=== PATIENT | male | born 1960 | race Caucasian/White ===

== ENCOUNTER 2019-04-29 08:09 | Inpatient (IN) | payer BC ==
[2019-04-29 08:54] LABS: Glucose,Whole Blood 115 mg/dL (75-99)
--- NOTE | 2019-04-29 08:58 | ED ---
General Adult HPI - General Chief complaint: Neuro Symptoms/Deficit Stated complaint: POSS CVA,left side numbness, leaning, dizziness Time Seen by Provider: 04/29/19 08:10 Source: patient, RN notes reviewed Mode of arrival: ambulatory Limitations: no limitations - History of Present Illness Initial comments: This is a 59-year-old male presents emergency department stating that he got up at 5:00 this morning and felt fine however when he got back up to go to the bathroom at 7:00 he was dizzy and felt as though his falling to the left. Patient states when he walked to let the dog out he had to hold onto something so he didn't fall over. Patient states he also feels as though his left arm is not coordinated. Patient states he seems to have good strength and good sensation but he doesn't feel as though he can control as good as he used to. Patient denies any right arm or any lower extremity problems. Patient denies any numbness anywhere or specific weakness. Patient denies any chest pain palpitations difficulty breathing or shortness of breath. Patient denies any recent fever or chills. Patient denies any recent trauma - Related Data Home Medications Medication Instructions Recorded Confirmed Cholecalciferol [Vitamin D3 (25 1,000 unit PO DAILY 04/29/19 04/29/19 Mcg = 1000 Iu)] Fluticasone Propionate [Flovent 1 puff INHALATION RT-BID 04/29/19 04/29/19 Hfa 220 mcg] Folic Acid 0.8 mg PO DAILY 04/29/19 04/29/19 Multivitamins, Thera [Multivitamin 1 tab PO DAILY 04/29/19 04/29/19 (formulary)] Alfred-3 Fatty Acids/Fish Oil [Fish 1 cap PO DAILY 04/29/19 04/29/19 Oil 1,000 mg Softgel] Pravastatin Sodium 80 mg PO HS 04/29/19 04/29/19 Allergies Allergy/AdvReac Type Severity Reaction Status Date / Time No Known Allergies Allergy Verified 04/29/19 08:31 Review of Systems ROS Statement: Those systems with pertinent positive or pertinent negative responses have been documented in the HPI. ROS Other: All systems not noted in ROS Statement are negative. Past Medical History Past Medical History: Hyperlipidemia Additional Past Medical History / Comment(s): skin ca 3yrs ago History of Any Multi-Drug Resistant Organisms: None Reported Past Surgical History: Appendectomy Additional Past Surgical History / Comment(s): skin ca removal 3 yrs ago Past Psychological History: No Psychological Hx Reported Smoking Status: Former smoker Past Alcohol Use History: Occasional Past Drug Use History: None Reported General Exam - General Exam Comments Initial Comments: GENERAL: Patient is well-developed and well-nourished. Patient is nontoxic and well- hydrated and is in mild distress. ENT: Neck is soft and supple. No significant lymphadenopathy is noted. Oropharynx is clear. Moist mucous membranes. Neck has full range of motion without eliciting any pain. EYES: The sclera were anicteric and conjunctiva were pink and moist. Extraocular movements were intact and pupils were equal round and reactive to light. Eyelids were unremarkable. PULMONARY: Unlabored respirations. Good breath sounds bilaterally. No audible rales rhonchi or wheezing was noted. CARDIOVASCULAR: There is a regular rate and rhythm without any murmurs gallops or rubs. ABDOMEN: Soft and nontender with normal bowel sounds. No palpable organomegaly was noted. There is no palpable pulsatile mass. SKIN: Skin is clear with no lesions or rashes and otherwise unremarkable. NEUROLOGIC: Patient is alert and oriented x3. Cranial nerves II through XII are grossly intact. Motor and sensory are also intact. Normal speech, volume and content. Symmetrical smile. Patient has no heel to cadena abnormality however testing is finger to nose he was definitely off with the left hand. Patient also had some slight nystagmus when looking to the right MUSCULOSKELETAL: Normal extremities with adequate strength and full range of motion. No lower extremity swelling or edema. No calf tenderness. LYMPHATICS: No significant lymphadenopathy is noted PSYCHIATRIC: Normal psychiatric evaluation. Limitations: no limitations Course Vital Signs 04/29/19 04/29/19 04/29/19 08:20 08:35 08:50 Temperature 97.9 F Pulse Rate 73 82 85 Respiratory 18 18 18 Rate Blood Pressure 157/97 150/103 144/95 O2 Sat by Pulse 94 L 95 95 Oximetry 04/29/19 04/29/19 09:05 09:20 Temperature Pulse Rate 83 82 Respiratory 18 18 Rate Blood Pressure 144/95 145/103 O2 Sat by Pulse 96 96 Oximetry Medical Decision Making - Medical Decision Making EKG shows normal sinus rhythm at 76 bpm SC interval 186 QRS is 98 QT interval 37 0 QTC is 416. Patient's EKG shows no ST segment elevation or depression or T wave abnormalities are noted. I spoke with Dr. Jean as soon as the patient was evaluated by myself. Patient had a CT of the head showed no acute abnormality and a CT that showed no acute abnormality. Dr. Jean wanted the patient to have aspirin and Lipitor. I spoke with Dr. Malloy he agreed to admit the patient admitted patient I consult the neurology - Lab Data Result diagrams: 04/29/19 08:40 04/29/19 08:40 Lab Results 04/29/19 04/29/19 04/29/19 Range/Units 08:40 08:40 08:40 WBC 5.7 (3.8-10.6) k/uL RBC 5.33 (4.30-5.90) m/uL Hgb 16.1 (13.0-17.5) gm/dL Hct 47.0 (39.0-53.0) % MCV 88.0 (80.0-100.0) fL MCH 30.2 (25.0-35.0) pg MCHC 34.3 (31.0-37.0) g/dL RDW 14.8 (11.5-15.5) % Plt Count 186 (150-450) k/uL Neutrophils % 57 % Lymphocytes % 26 % Monocytes % 6 % Eosinophils % 6 % Basophils % 1 % Neutrophils # 3.2 (1.3-7.7) k/uL Lymphocytes # 1.5 (1.0-4.8) k/uL Monocytes # 0.4 (0-1.0) k/uL Eosinophils # 0.3 (0-0.7) k/uL Basophils # 0.1 (0-0.2) k/uL PT 10.0 (9.0-12.0) sec INR 0.9 (<1.2) APTT 23.2 (22.0-30.0) sec Sodium 141 (137-145) mmol/L Potassium 4.0 (3.5-5.1) mmol/L Chloride 104 (98-107) mmol/L Carbon Dioxide 28 (22-30) mmol/L Anion Gap 9 mmol/L BUN 12 (9-20) mg/dL Creatinine 0.98 (0.66-1.25) mg/dL Est GFR (CKD-EPI)AfAm >90 (>60 ml/min/1.73 sqM) Est GFR (CKD-EPI)NonAf 84 (>60 ml/min/1.73 sqM) Glucose 107 H (74-99) mg/dL POC Glucose (mg/dL) (75-99) mg/dL POC Glu Straightening Press Operator Helper ID Calcium 9.3 (8.4-10.2) mg/dL Total Bilirubin 0.7 (0.2-1.3) mg/dL AST 30 (17-59) U/L ALT 38 (21-72) U/L Alkaline Phosphatase 52 (38-126) U/L Troponin I (0.000-0.034) ng/mL Total Protein 6.8 (6.3-8.2) g/dL Albumin 4.3 (3.5-5.0) g/dL 04/29/19 04/29/19 Range/Units 08:40 08:44 WBC (3.8-10.6) k/uL RBC (4.30-5.90) m/uL Hgb (13.0-17.5) gm/dL Hct (39.0-53.0) % MCV (80.0-100.0) fL MCH (25.0-35.0) pg MCHC (31.0-37.0) g/dL RDW (11.5-15.5) % Plt Count (150-450) k/uL Neutrophils % % Lymphocytes % % Monocytes % % Eosinophils % % Basophils % % Neutrophils # (1.3-7.7) k/uL Lymphocytes # (1.0-4.8) k/uL Monocytes # (0-1.0) k/uL Eosinophils # (0-0.7) k/uL Basophils # (0-0.2) k/uL PT (9.0-12.0) sec INR (<1.2) APTT (22.0-30.0) sec Sodium (137-145) mmol/L Potassium (3.5-5.1) mmol/L Chloride (98-107) mmol/L Carbon Dioxide (22-30) mmol/L Anion Gap mmol/L BUN (9-20) mg/dL Creatinine (0.66-1.25) mg/dL Est GFR (CKD-EPI)AfAm (>60 ml/min/1.73 sqM) Est GFR (CKD-EPI)NonAf (>60 ml/min/1.73 sqM) Glucose (74-99) mg/dL POC Glucose (mg/dL) 115 H (75-99) mg/dL POC Glu Straightening Press Operator Helper ID Kerwin Navarrete Calcium (8.4-10.2) mg/dL Total Bilirubin (0.2-1.3) mg/dL AST (17-59) U/L ALT (21-72) U/L Alkaline Phosphatase (38-126) U/L Troponin I <0.012 (0.000-0.034) ng/mL Total Protein (6.3-8.2) g/dL Albumin (3.5-5.0) g/dL Disposition Clinical Impression: Cerebrovascular accident Disposition: ADMITTED IP TO THIS HOSP Referrals: Harsh Moe MD [Primary Care Provider] - 1-2 days Time of Disposition: 10:40
--- NOTE | 2019-04-29 09:04 | CT ---
EXAMINATION TYPE: CT brain wo con for TPA DATE OF EXAM: 04/29/2019 COMPARISON: None HISTORY: Left side numbness, lean, dizziness Unenhanced CT of the brain was performed. The ventricles, basal cisterns and sulci overlying the cerebral convexities demonstrate mild enlargem ent. There is no evidence for intracranial hemorrhage or sulcal effacement. There is decreased attenuation about the periventricular white matter and deep white matter of both c erebral hemispheres, compatible with chronic small vessel ischemia. Differential diagnosis does inclu de demyelination. No mass effects are seen.No midline shift. Osseous calvarium is intact. If symptoms persist consider MRI. IMPRESSION: 1. Age related atrophic and chronic small vessel ischemic change without acute intracranial process s een at this time.
--- NOTE | 2019-04-29 09:07 | XR ---
EXAMINATION TYPE: XR chest 2V DATE OF EXAM: 04/29/2019 COMPARISON: NONE HISTORY: Shortness of breath TECHNIQUE: Frontal and lateral views of the chest are obtained. FINDINGS: Scattered senescent parenchymal changes noted. Hyperinflation compatible with COPD. No evidence for infiltrate. No evidence for atelectasis. Heart size is stable. Mediastinal structures are stable and grossly unremarkable. No evidence for hilar prominence. Degenerative changes dorsal spine. IMPRESSION: 1. No evidence for acute pulmonary disease.
[2019-04-29 09:20] LABS: Basophils # (A) 0.1 k/uL (0-0.2); Basophils % (A) 1 %; Eosinophils # (A) 0.3 k/uL (0-0.7); Eosinophils % (A) 6 %; HGB 16.1 gm/dL (13.0-17.5); Lymphocytes # (A) 1.5 k/uL (1.0-4.8); Lymphocytes % (A) 26 %; MCH 30.2 pg (25.0-35.0); MCHC 34.3 g/dL (31.0-37.0); Mean Platelet Volume 8.7; Monocytes # (A) 0.4 k/uL (0-1.0); Monocytes % (A) 6 %; Neutrophils # (A) 3.2 k/uL (1.3-7.7); Neutrophils % (A) 57 %; Platelet Count 186 k/uL (150-450); RBC 5.33 m/uL (4.30-5.90); RDW 14.8 % (11.5-15.5); WBC 5.7 k/uL (3.8-10.6)
[2019-04-29] MEDS ORDERED: ATORVASTATIN 80 MG TAB PO STA (09:22)
--- NOTE | 2019-04-29 09:32 | CT ---
EXAMINATION TYPE: CT angio head neck DATE OF EXAM: 04/29/2019 COMPARISON: None HISTORY: Left side numbness, lean, dizziness CT DLP: 603.1 mGycm CONTRAST: Performed with IV Contrast, patient injected with 50 mL of Isovue 370. Combination Contrast CTA cervical carotids and [place] CTA cervical carotids with 3-D recons truction Contrast CTA of the cervical carotids was performed 3-D reconstruction imaging obtained at a separate workstation. Right carotid system: Mild plaque is seen of the right common carotid artery. There is mild plaque a lso noted at the carotid bulb and proximal ICA. No significant diameter reduction. ECA is patent. Right vertebral artery appears unremarkable. Left carotid system: Mild plaque is seen of the left common carotid artery. There is mild plaque als o noted at the carotid bulb and proximal ICA. No significant diameter reduction. ECA is patent. Lef t vertebral artery appears unremarkable. IMPRESSION: 1. No significant diameter reduction to account for the patient's symptoms. CTA [place] with 3-D reconstruction Contrast CTA of the [place] was performed 3-D reconstruction imaging obtained at a separate workstation. Vertebrobasilar system as well as intracranial portions of the internal carotid arteries and their ma cyrus tributaries are patent. I do not see evidence for sizable aneurysm or vascular malformation. Pl ease note MRI provides greater sensitivity and specificity. Visualized brain appears grossly unremar kable. IMPRESSION: 1. No significant abnormality.
[2019-04-29 09:33] LABS: INR 0.9 (<1.2); Partial Thromboplastin Time 23.2 sec (22.0-30.0)
[2019-04-29 09:40] LABS: ALT 38 U/L (21-72); AST 30 U/L (17-59); African American GFR (CKD) >90 (>60 ml/min/1.73 sqM); Albumin 4.3 g/dL (3.5-5.0); Alkaline Phosphatase 52 U/L (38-126); Anion Gap 9 mmol/L; Blood Urea Nitrogen 12 mg/dL (9-20); Calcium 9.3 mg/dL (8.4-10.2); Carbon Dioxide 28 mmol/L (22-30); Chloride 104 mmol/L (98-107); Glucose 107 mg/dL (74-99); Sodium 141 mmol/L (137-145); Total Bilirubin 0.7 mg/dL (0.2-1.3); Total Protein 6.8 g/dL (6.3-8.2)
[2019-04-29] MEDS ORDERED: NON-FORMULARY DRUG (Omega-3 Fatty Acids/Fish Oil [Fish Oil 1,000 Mg Softgel] 1 CAP) PO SCH (11:00)
[2019-04-29] MEDS: ASPIRIN 325 MG TAB PO SCH (11:32)
[2019-04-29] MEDS: CHOLECALCIFEROL 1,000 UNIT TAB PO SCH (15:24)
[2019-04-29] MEDS: FOLIC ACID 1 MG TAB PO SCH (15:24)
[2019-04-29] MEDS: MULTIVITAMINS, THERA 1 EACH TAB PO SCH (15:24)
[2019-04-29 17:30] LABS: Hemoglobin A1C 5.5 % (4.0-6.0)
--- NOTE | 2019-04-29 18:03 | P.CNNES ---
History of Present Illness Consult date: 04/29/19 Requesting physician: Easton Cooper Reason for Consult: CVA Chief complaint: "I feel off balance when I walk" History of Present Illness: 59 RH male whose only conventional vascular risk factor is hyperlipidemia who woke up this morning at 5am 04/29/19 and noted to be at his neuro baseline. When he woke up again at 7am to walk his dog, he noted wobbliness and difficulty with coordination of his LUE. He noted that he would veer and fall to the left when he tried to walk. He presented to the ER who contacted interventional neurology who did not recommend any acute vascular intervention. He was asked to start aspirin and statin therapy. Incidentally, patient states that he had been on asp irin long-term, but was recently told to discontinue it, so he did. Otherwise, he lives a healthy lifestyle. 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 No recent head/neck trauma. Review of Systems 14-point ROS performed and as per HPI. Neurologically, patient denies decreased level or loss of consciousness, headache, seizure, changes in vision, diplopia, amaurosis, changes in hearing, facial droop, ptosis, vertigo, hearing loss, tinnitus, dysarthria, dysphagia, aphasia, other focal numbness/weakness not mentioned above, tremors or bowel/bladder incontinence. Past Medical History Past Medical History: Hyperlipidemia Additional Past Medical History / Comment(s): skin ca 3yrs ago History of Any Multi-Drug Resistant Organisms: None Reported Past Surgical History: Appendectomy Additional Past Surgical History / Comment(s): skin ca removal 3 yrs ago Past Anesthesia/Blood Transfusion Reactions: No Reported Reaction Smoking Status: Former smoker - Past Family History Father Family Medical History: Hypertension, Myocardial Infarction ([place]) Additional Family Medical History / Comment(s): Father of a massive AL at the age of 63yrs. Mother Family Medical History: Cancer Additional Family Medical History / Comment(s): Mother had lung cancer, she never smoked but was around 2nd hand smoke. Son(s) Family Medical History: Hypertension Medications and Allergies Home Medications Medication Instructions Recorded Confirmed Type Cholecalciferol [Vitamin D3 (25 1,000 unit PO DAILY 04/29/19 04/29/19 History Mcg = 1000 Iu)] Fluticasone Propionate [Flovent 1 puff INHALATION RT-BID 04/29/19 04/29/19 History Hfa 220 mcg] Folic Acid 0.8 mg PO DAILY 04/29/19 04/29/19 History Multivitamins, Thera [Multivitamin 1 tab PO DAILY 04/29/19 04/29/19 History (formulary)] Chemult-3 Fatty Acids/Fish Oil [Fish 1 cap PO DAILY 04/29/19 04/29/19 History Oil 1,000 mg Softgel] Pravastatin Sodium 80 mg PO HS 04/29/19 04/29/19 History Allergies Allergy/AdvReac Type Severity Reaction Status Date / Time No Known Allergies Allergy Verified 04/29/19 08:31 Physical Examination - Vital Signs Vital Signs: Vital Signs Temp Pulse Pulse Pulse Resp BP BP 04/29/19 15:30 97.6 F 76 76 16 139/84 04/29/19 14:48 97.6 F 88 16 132/84 04/29/19 13:43 97.4 F L 74 16 126/85 04/29/19 13:00 16 04/29/19 12:17 80 16 132/88 04/29/19 11:20 85 16 141/92 04/29/19 10:20 82 16 136/93 04/29/19 09:20 82 18 145/103 04/29/19 09:05 83 18 144/95 04/29/19 08:50 85 18 144/95 04/29/19 08:35 82 18 150/103 04/29/19 08:20 97.9 F 73 18 157/97 Pulse Ox 04/29/19 15:30 94 L 04/29/19 14:48 98 04/29/19 13:43 98 04/29/19 13:00 04/29/19 12:17 04/29/19 11:20 95 04/29/19 10:20 04/29/19 09:20 96 04/29/19 09:05 96 04/29/19 08:50 95 04/29/19 08:35 95 04/29/19 08:20 94 L Intake and Output 04/29/19 04/29/19 04/29/19 06:59 14:59 22:59 Other: Weight 104.326 kg Gen NAD Pleasant and cooperative HEENT NCAT Sclera without icterus O/P clear Neck Supple No carotid bruit Cor RRR no m/r/g Lungs CTAB Abd Soft NTND +BS Ext Warm to touch No edema Neuro MS A+Ox4 Normal fluency Able to follow all commands CN PERRL VFF no APD EOMI no nystagmus or GEENA No facial asymmetry Masseter's symmetric Hearing intact to normal voice bilaterally Speech not dysarthric Equal elevation of palate Tongue midline Sym shrug and SCM bilaterally Motor Normal bulk/tone No pronator or leg drift No tremors Strength 5/5 sym throughout Sens Intact to LT x4 No neglect or extinction Coord +Dysmetria on FTN on the left Normal FTN on the right Normal HTS bilaterally DTRs 2+/4 sym throughout Toes downgoing bilaterally No clonus at achilles Gait Ataxic NIHSS 1 for left limb ataxia Results - Laboratory Findings CBC and BMP: 04/29/19 08:40 04/29/19 08:40 Abnormal Lab Findings: Abnormal Labs 04/29/19 04/29/19 08:40 08:44 Glucose 107 H POC Glucose (mg/dL) 115 H - Diagnostic Findings Additional findings: CT head without contrast 04/29/2019. Age-related atrophy and chronic small vessel ischemic disease. No acute intracranial abnormalities. CTA Head/Neck 04/29/2019. No LVO or stenosis. Assessment and Plan Assessment: Abrupt onset of left limb and truncal ataxia with concerns for cerebellar ischemic infarct. Hyperlipidemia Plan: -Aspirin 325mg po qd. -Statin therapy. -Permissive HTN <220/120. -Goals BP <130/80, hga1c <7.0 and LDL <70 -MRI Brain wo jerome -TTE -CT and CTA Head/Neck reviewed with patient -PT/OT/SP per protocol -Fall precautions -Stroke education given to patient -DVT prophylaxis: Heparin SC -d/w patient and . All questions answered. Thank you for this consultation. Please call with ?. Time with Patient: Greater than 30 (Time spent in direct patient care, greater than 50% of which was spent in [id number] counseling and coordination of care: 70 minutes.)
--- NOTE | 2019-04-29 18:12 | P.HPIM ---
History of Present Illness H&P Date: 04/29/19 Chief Complaint: Dizziness Patient is a 59-year-old male with a known history of hyperlipidemia and previous history of smoking came to ER with the complaints of dizziness and feeling wobbly. Patient says that he woke up around 5 AM this morning and went to bed again. At around 7 AM patient got out of the bed and let his dog out , felt dizzy and wobbly and unable to stay on his feet. He had to hold onto the wall. Denied any fall or hit his head. No compressive chest pain or shortness of breath. Denied room was spinning like sensation. Denied any focal weakness. Denied any numbness or tingling. Denied any previous neck problems. No recent illnesses. No recent travels. Currently dizziness seems improved. Patient did take 2 tablets of aspirin at home. EKG showed normal sinus rhythm. Chest x-ray negative CT head and CTA head and neck negative study. Review of Systems Constitutional: Patient denies any fever or chills . No generalized weakness or weight loss. Abdomen: Patient denied nausea vomiting and diarrhea and abdominal pain. Cardiovascular: Patient denies any chest pain or short of breath no pal pitations. Respiratory: patient denied any cough is from production. No shortness of breath Neurologic: Patient denied any numbness or tingling headache. Dizziness and unsteady gait. Musculoskeletal: Patient denies any complaints of joint swelling or deformity. Skin: Negative Psychiatric: Negative Endocrine: No heat or cold intolerance. No recent weight gain. Genitourinary: No dysuria or hematuria. All other 14 point ROS negative except the above Past Medical History Past Medical History: Hyperlipidemia Additional Past Medical History / Comment(s): skin ca 3yrs ago History of Any Multi-Drug Resistant Organisms: None Reported Past Surgical History: Appendectomy Additional Past Surgical History / Comment(s): skin ca removal 3 yrs ago Past Psychological History: No Psychological Hx Reported Smoking Status: Former smoker Past Alcohol Use History: Occasional Past Drug Use History: None Reported - Past Family History Father Family Medical History: Hypertension, Myocardial Infarction ([place]) Additional Family Medical History / Comment(s): Father of a massive [place] at the age of 63yrs. Mother Family Medical History: Cancer Additional Family Medical History / Comment(s): Mother had lung cancer, she never smoked but was around 2nd hand smoke. Son(s) Family Medical History: Hypertension Medications and Allergies Home Medications Medication Instructions Recorded Confirmed Type Cholecalciferol [Vitamin D3 (25 1,000 unit PO DAILY 04/29/19 04/29/19 History Mcg = 1000 Iu)] Fluticasone Propionate [Flovent 1 puff INHALATION RT-BID 04/29/19 04/29/19 History Hfa 220 mcg] Folic Acid 0.8 mg PO DAILY 04/29/19 04/29/19 History Multivitamins, Thera [Multivitamin 1 tab PO DAILY 04/29/19 04/29/19 History (formulary)] Exchange-3 Fatty Acids/Fish Oil [Fish 1 cap PO DAILY 04/29/19 04/29/19 History Oil 1,000 mg Softgel] Pravastatin Sodium 80 mg PO HS 04/29/19 04/29/19 History Allergies Allergy/AdvReac Type Severity Reaction Status Date / Time No Known Allergies Allergy Verified 04/29/19 08:31 Physical Exam Vitals: Vital Signs Temp Pulse Resp BP Pulse Ox 04/29/19 09:20 82 18 145/103 96 04/29/19 09:05 83 18 144/95 96 04/29/19 08:50 85 18 144/95 95 04/29/19 08:35 82 18 150/103 95 04/29/19 08:20 97.9 F 73 18 157/97 94 L Intake and Output 04/28/19 04/29/19 04/29/19 22:59 06:59 14:59 Other: Weight 104.326 kg PHYSICAL EXAMINATION: Patient is lying in the bed comfortably, no acute distress, awake alert and oriented.. HEENT: Normocephalic. Neck is supple. Pupils reactive. Nostrils clear. Oral cavity is moist. Ears reveal no drainage. Neck reveals no JVD, carotid bruits, or thyromegaly. CHEST EXAMINATION: Trachea is central. Symmetrical expansion. Lung sebastian clear to auscultation and percussion. CARDIAC: Normal S1, S2 with no gallops. No murmurs ABDOMEN: Soft. Bowel sounds normal. No organomegaly. No abdominal bruits. Extremities: reveal no edema. No clubbing or cyanosis Neurologically awake, alert, oriented x3 with well-coordinated movements. No focal deficits noted Skin: No rash or skin lesions. Psychiatric: Coperative. Nonsuicidal Musculoskeletal: No joint swelling or deformity. Normal range of motion. Results CBC & Chem 7: 04/29/19 08:40 04/29/19 08:40 Labs: Abnormal Lab Results - Last 24 Hours (Table) 04/29/19 04/29/19 Range/Units 08:40 08:44 Glucose 107 H (74-99) mg/dL POC Glucose (mg/dL) 115 H (75-99) mg/dL Chest x-ray: report reviewed, image reviewed CT Scan - head: report reviewed Thrombosis Risk Factor Assmnt - DVT/VTE Prophylaxis DVT/VTE Prophylaxis: Pharmacologic Prophylaxis ordered Assessment and Plan Assessment: Dizziness and unsteady gait possible cerebellar infarct. Hyperlipidemia Plan is history of smoking Obesity with BMI 30 4X line DVT prophylaxis Plan: Patient will be continued on aspirin and statins. Continue with telemetry monitoring. CT head and CT angiogram of the head and neck studies negative. Neurology has seen the patient did MRI of the brain without contrast and DVT with bubble study was ordered. PTOT and speech swallow evaluation. Follow up closely. Discussed with the patient and his at bedside in detail. Further recommendations based on the clinical course. Time with Patient: Greater than 30
[2019-04-29] MEDS: FLUTICASONE 220 MCG INHALER INHALATION SCH (20:46)
[2019-04-29] MEDS: HEPARIN SODIUM,PORCINE 5,000 UNIT/ML 1 ML VIAL SQ SCH (23:07)
[2019-04-30] MEDS ORDERED: HEPARIN SODIUM,PORCINE 5,000 UNIT/ML 1 ML VIAL ONE
[2019-04-30 08:06] LABS: Cholesterol 183 mg/dL (<200); HDL Cholesterol 38 mg/dL (40-60); LDL Cholesterol,Calculated 121 mg/dL (0-99); Triglycerides 121 mg/dL (<150)
[2019-04-30] MEDS: ASPIRIN 325 MG TAB PO SCH (08:13)
[2019-04-30] MEDS: HEPARIN SODIUM,PORCINE 5,000 UNIT/ML 1 ML VIAL SQ SCH ×2 (08:13→15:44)
[2019-04-30] MEDS: MULTIVITAMINS, THERA 1 EACH TAB PO SCH (08:13)
[2019-04-30] MEDS: CHOLECALCIFEROL 1,000 UNIT TAB PO SCH (08:13)
[2019-04-30] MEDS: FOLIC ACID 1 MG TAB PO SCH (08:13)
[2019-04-30] MEDS: FLUTICASONE 220 MCG INHALER INHALATION SCH ×2 (08:16→20:57)
--- NOTE | 2019-04-30 10:34 | ECHOF ---
Referral Reason:CVA MEASUREMENTS -------- HEIGHT: 175.3 cm WEIGHT: 104.8 kg BP: 121/78 RVIDd: 3.2 cm (< 3.3) IVSd: 1.5 cm (0.6 - 1.1) LVIDd: 3.3 cm (3.9 - 5.3) LVPWd: 1.6 cm (0.6 - 1.1) IVSs: 2.1 cm LVIDs: 1.7 cm LVPWs: 2.0 cm LAESV Index (A-L): 16.76 ml/m Ao Diam: 3.5 cm (2.0 - 3.7) AV Cusp: 2.1 cm (1.5 - 2.6) LA Diam: 3.7 cm (2.7 - 3.8) MV EXCURSION: 14.577 mm (> 18.000) MV EF SLOPE: 41 mm/s (70 - 150) EPSS: 0.9 cm MV E Kolby: 0.71 m/s MV DecT: 261 ms MV A Kolby: 0.82 m/s MV E/A Ratio: 0.87 RAP: 5.00 mmHg RVSP: 28.31 mmHg FINDINGS -------- Sinus rhythm. This was a technically good study. The left ventricular size is normal. There is mild concentric left ventricular hypertrophy. Overa ll left ventricular systolic function is normal with, an EF between 55 - 60 %. The right ventricle is normal in size. The left atrial size is normal. Normal LA size by volume 22+/-6 ml/m2. The right atrial size is normal. Contrast study was performed with 2 iv injections of 8 ccs of agitated normal saline, at rest, and wi th cough. Interatrial and interventricular septum intact. Aortic valve is trileaflet and is mildly thickened. The mitral valve leaflets are mildly thickened. There is trace mitral regurgitation. Mild tricuspid regurgitation present. Right ventricular systolic pressure is normal at < 35 mmHg. There is no pulmonic regurgitation present. The aortic root size is normal. Normal inferior vena cava with normal inspiratory collapse consistent with estimated right atrial pre ssure of 5 mmHg. There is no pericardial effusion. CONCLUSIONS -------- 1. Sinus rhythm. 2. This was a technically good study. 3. The left ventricular size is normal. 4. There is mild concentric left ventricular hypertrophy. 5. Overall left ventricular systolic function is normal with, an EF between 55 - 60 %. 6. The right ventricle is normal in size. 7. The left atrial size is normal. 8. Normal LA size by volume 22+/-6 ml/m2. 9. The right atrial size is normal. 10. Contrast study was performed with 2 iv injections of 8 ccs of agitated normal saline, at rest, an d with cough. 11. Interatrial and interventricular septum intact.No right to left shunt is noted. 12. Aortic valve is trileaflet and is mildly thickened. 13. The mitral valve leaflets are mildly thickened. 14. There is trace mitral regurgitation. 15. Mild tricuspid regurgitation present. 16. Right ventricular systolic pressure is normal at < 35 mmHg. 17. There is no pulmonic regurgitation present. 18. The aortic root size is normal. 19. Normal inferior vena cava with normal inspiratory collapse consistent with estimated right atrial pressure of 5 mmHg. 20. There is no pericardial effusion. SECURITY ASSOCIATE: Zoe Sue RDCS
--- NOTE | 2019-04-30 13:35 | P.PN ---
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 TTE done. Awaiting MRI. No new neuro c/o. Seen by PT/OT. Reportedly recommended outpatient therapy and not inpatient rehab stay. Objective - Vital Signs Vital signs: Vital Signs Temp 97.2 F L 04/30/19 12:00 Pulse 73 04/30/19 12:00 Resp 18 04/30/19 12:00 BP 134/90 04/30/19 12:00 Pulse Ox 94 L 04/30/19 12:00 Intake & Output 04/29/19 04/30/19 04/30/19 18:59 06:59 18:59 Intake Total 480 120 Balance 480 120 Weight 104.326 kg 105.2 kg Intake: Oral 480 120 Other: Voiding Method Toilet Toilet # Voids 2 1 1 - Exam Gen NAD Pleasant and cooperative MS A+Ox4 Normal speech CN II-XII grossly intact no nystagmus Motor Normal bulk/tone No drift or tremors Strength 5/5 sym throughout Sens Intact to LT x4 Coord Left upper limb ataxia DTRs 2+/4 sym throughout Gait Deferred NIHSS 1 - Labs CBC & Chem 7: 04/29/19 08:40 04/29/19 08:40 Labs: Abnormal Lab Results - Last 24 Hours (Table) 04/30/19 Range/Units 06:45 LDL Cholesterol, Calc 121 H (0-99) mg/dL HDL Cholesterol 38 L (40-60) mg/dL - Imaging and Cardiology TTE 04/30/19. Normal LV size and EF. No [id number] shunt. No intracardiac thrombi. Assessment and Plan Assessment: Abrupt onset of left limb and truncal ataxia with concerns for cerebellar ische suleman infarct. Hyperlipidemia Plan: -Aspirin 325mg po qd. -Statin therapy. -May gradually lower BP to normotensive range. -Goals BP <130/80, hga1c <7.0 and LDL <70 -MRI Brain wo jerome pending. -TTE reviewed with patient. Patient does not really have significant vascular risk factors except for HL. If all stroke work-up negative, may consider LEROY with bubble. -CT and CTA Head/Neck reviewed with patient -PT/OT/SP per protocol -Fall precautions -DVT prophylaxis: Heparin SC -Please refer patient to outpatient neurology for follow-up in next 2-3 weeks -d/w patient and . All questions answered. -May discharge from neuro standpoint after MRI. No further neuro recs at this time. Please call with new ?. Thank you again for this consultation. Please call with ?. Time with Patient: Less than 30 (Time spent in direct patient care, greater than 50% of which was spent in [id number] counseling and coordination of care: 25 minutes)
--- NOTE | 2019-04-30 19:21 | P.PN ---
Progress Note - Text Progress Note Date: 04/30/19 MRI Brain done this evening. Reviewed findings with patient. It does show a small area of restricted diffusion in the left cerebellum explaining his left- sided ataxia. His inpatient work-up is complete. According to patient, therapists are recommending outpatient rehab. If this is the case, he is then cleared for discharge from a neurological standpoint. Please make referral for patient to follow up with outpatient neurology within 1-2 weeks for consideration of additional work-up for less common reasons of ischemic stroke given he does not have copious stroke risk factors other than hyperlipidemia. Meanwhile, continue aspirin 325mg po qd. He should be discharged on a statin unless there are medical contraindications as his LDL is 121 and goal should be <70. No other neuro recs at this time. Please call with new ?. d/w patient and staff. Time spent in [id number] counseling and coordination of care: 25 minutes.
--- NOTE | 2019-04-30 19:34 | MR ---
EXAMINATION TYPE: MR brain wo con DATE OF EXAM: 04/30/2019 COMPARISON: CT 04/29/2019 at 8:55 AM HISTORY: Ataxia with concerns for left cerebellar CVA Technique: Standard multiplanar, multisequence MRI departmental protocol. Diffusion weighted imaging was performed. FINDINGS: There is a 9 mm mean diameter focus of restricted diffusion and subtle T2 hyperintensity in the left cerebellar tonsil, consistent with acute nonhemorrhagic infarction. There are no other sim ilar findings. There are no zones of cerebral or cerebellar encephalomalacia to suggest prior macrova scular infarction. The vascular flow void pattern is unremarkable. There are a few scattered 1 mm T2 hyperintensities within the bilateral jeffers radiata and centrum se miovale, entirely nonspecific. There is no mass or mass effect. The ventricular system and sulcal pattern and cisterns are unremarka ble. The paranasal sinuses and mastoid sinus air cells and middle ear cavities are clear. The orbits are intact. No other findings. IMPRESSION: 9 mm left cerebellar tonsil nonhemorrhagic infarction.
--- NOTE | 2019-05-01 00:39 | P.PN ---
Subjective Progress Note Date: 04/30/19 Principal diagnosis: Acute CVA likely cerebellar infarct Patient is a 59-year-old male with a known history of hyperlipidemia and previous history of smoking came to ER with the complaints of dizziness and feeling wobbly. Patient says that he woke up around 5 AM this morning and went to bed again. At around 7 AM patient got out of the bed and let his dog out , felt dizzy and wobbly and unable to stay on his feet. He had to hold onto the wall. Denied any fall or hit his head. No compressive chest pain or shortness of breath. Denied room was spinning like sensation. Denied any focal weakness. Denied any numbness or tingling. Denied any previous neck problems. No recent illnesses. No recent travels. Currently dizziness seems improved. Patient did take 2 tablets of aspirin at home. EKG showed normal sinus rhythm. Chest x-ray negative CT head and CTA head and neck negative study. 04/30/2019 Patient says that his dizziness is better today. Able to ambulate in the hallway with physical therapy. Denied any swallowing difficulty. Tolerating oral diet. 2-D echocardiogram showed normal ejection fraction no wall motion, disorder significant valvular abnormalities. No shunt noted. MRI of the brain this afternoon. Patient will be continued on aspirin and statins. Neurology is following. Anticipate discharge pending MRI of the brain report. Current medications reviewed Objective - Vital Signs Vital signs: Vital Signs Temp 98.7 F 04/30/19 16:00 Pulse 68 04/30/19 20:32 Resp 16 04/30/19 20:32 BP 123/69 04/30/19 20:32 Pulse Ox 96 04/30/19 20:32 Intake & Output 04/30/19 04/30/19 05/01/19 06:59 18:59 06:59 Intake Total 360 Balance 360 Weight 105.2 kg Intake: Oral 360 Other: Voiding Method Toilet Toilet Toilet # Voids 1 1 - Exam PHYSICAL EXAMINATION: Patient is lying in the bed comfortably, no acute distress, awake alert and oriented.. HEENT: Normocephalic. Neck is supple. Pupils reactive. Nostrils clear. Oral cavity is moist. Ears reveal no drainage. Neck reveals no JVD, carotid bruits, or thyromegaly. CHEST EXAMINATION: Trachea is central. Symmetrical expansion. Lung sebastian clear to auscultation and percussion. CARDIAC: Normal S1, S2 with no gallops. No murmurs ABDOMEN: Soft. Bowel sounds normal. No organomegaly. No abdominal bruits. Extremities: reveal no edema. No clubbing or cyanosis Neurologically awake, alert, oriented x3 with well-coordinated movements. No focal deficits noted Skin: No rash or skin lesions. Psychiatric: Coperative. Nonsuicidal Musculoskeletal: No joint swelling or deformity. Normal range of motion. - Labs CBC & Chem 7: 04/29/19 08:40 04/29/19 08:40 Labs: Abnormal Lab Results - Last 24 Hours (Table) 04/30/19 Range/Units 06:45 LDL Cholesterol, Calc 121 H (0-99) mg/dL HDL Cholesterol 38 L (40-60) mg/dL Assessment and Plan Assessment: Dizziness and unsteady gait due to cerebellar ischemic infarct. Hyperlipidemia He has history of smoking Obesity with BMI 30 4X line DVT prophylaxis Plan: Patient will be continued on aspirin and statins. Continue with telemetry monitoring. CT head and CT angiogram of the head and neck studies negative. Neurology has seen the patient did MRI of the brain without contrast and a TTE with bubble study was ordered. MRI of the brain is pending. The echo showed normal ejection fraction. PTOT and speech swallow evaluation. Patient is able to swallow without any difficulty. Continued on PT OT. Discussed with the patient and his at bedside in detail. Further recommendations based on the clinical course. Time with Patient: Greater than 30
[2019-05-01] MEDS: HEPARIN SODIUM,PORCINE 5,000 UNIT/ML 1 ML VIAL SQ SCH ×2 (02:42→07:54)
[2019-05-01 05:57] VITALS: PULSE 67
[2019-05-01] MEDS: FLUTICASONE 220 MCG INHALER INHALATION SCH (07:32)
[2019-05-01] MEDS: MULTIVITAMINS, THERA 1 EACH TAB PO SCH (07:55)
[2019-05-01] MEDS: CHOLECALCIFEROL 1,000 UNIT TAB PO SCH (07:55)
[2019-05-01] MEDS: FOLIC ACID 1 MG TAB PO SCH (07:56)
[2019-05-01] MEDS: ASPIRIN 325 MG TAB PO SCH (07:56)
[2019-05-01 09:52] VITALS: BP 101/74; RESP 18; TEMP 97.1
== END 2019-05-01 13:05 | disposition home or self-care (01) | DRG 66 ==
LOC: EC 08:09 → 3SCARD 10:41
PROVIDERS: ADMIT Hospitalist; ATTEND Hospitalist
DX: I63.9 Cerebral infarction, unspecified (principal); Z87.891 Personal history of nicotine dependence; E78.5 Hyperlipidemia, unspecified; Z79.51 Long term (current) use of inhaled steroids; Z79.82 Long term (current) use of aspirin; Z80.1 Family history of malignant neoplasm of trachea, bronchus and lung; Z82.49 Family history of ischemic heart disease and other diseases of the circulatory system; Z85.828 Personal history of other malignant neoplasm of skin; R26.81 Unsteadiness on feet; E66.9 Obesity, unspecified; Z68.34 Body mass index [BMI] 34.0-34.9, adult; Z79.899 Other long term (current) drug therapy
CPT/HCPCS: 36415; 70450; 70496; 70498; 70551; 71046; 80053; 80061; 83036; 84443; 84484; 85025; 85610; 85730; 93306; 94640; 99285

== ENCOUNTER 2023-09-11 08:13 | Observation (INO) | payer BC, OTHER ==
[2023-09-11] MEDS ORDERED: SODIUM CHLORIDE 0.9% 500 ML 500 ML IV ONE (08:31)
--- NOTE | 2023-09-11 08:31 | ED ---
General Adult HPI - General Chief complaint: Dizziness Stated complaint: dizziness Time Seen by Provider: 09/11/23 08:22 Source: patient, RN notes reviewed, old records reviewed Mode of arrival: ambulatory Limitations: no limitations - History of Present Illness Initial comments: 63-year-old male presenting for evaluation of dizziness. Patient states he woke this morning with dizziness and unsteady gait. He states he had similar symptoms approximately 4 years ago which were related to a stroke. He took 325 mg aspirin this morning. Denies headache. Denies limb weakness. Denies chest or abdominal pain. No fever. No vomiting. - Related Data Home Medications Medication Instructions Recorded Confirmed Cholecalciferol [Vitamin D3 (25 1,000 unit PO DAILY 04/29/19 04/29/19 Mcg = 1000 Iu)] Fluticasone Propionate [Flovent 1 puff INHALATION RT-BID 04/29/19 04/29/19 Hfa 220 mcg] Folic Acid 0.8 mg PO DAILY 04/29/19 04/29/19 Multivitamins, Thera [Multivitamin 1 tab PO DAILY 04/29/19 04/29/19 (formulary)] [place]-3 Fatty Acids/Fish Oil [Fish 1 cap PO DAILY 04/29/19 04/29/19 Oil 1,000 mg Softgel] Previous Rx's Medication Instructions Recorded Aspirin 325 mg PO DAILY #30 tab 04/30/19 Pravastatin Sodium 80 mg PO HS #30 tablet 04/30/19 Allergies Allergy/AdvReac Type Severity Reaction Status Date / Time No Known Allergies Allergy Verified 09/11/23 08:18 Review of Systems ROS Statement: Those systems with pertinent positive or pertinent negative responses have been documented in the HPI. ROS Other: All systems not noted in ROS Statement are negative. Past Medical History Past Medical History: CVA/TIA, Hyperlipidemia Additional Past Medical History / Comment(s): skin ca 3yrs ago History of Any Multi-Drug Resistant Organisms: None Reported Past Surgical History: Appendectomy Additional Past Surgical History / Comment(s): skin ca removal 3 yrs ago Past Anesthesia/Blood Transfusion Reactions: No Reported Reaction Past Psychological History: No Psychological Hx Reported Smoking Status: Never smoker Past Alcohol Use History: Occasional Past Drug Use History: None Reported - Past Family History Father Family Medical History: Hypertension, Myocardial Infarction (CO) Additional Family Medical History / Comment(s): Father of a massive CO at the age of 63yrs. Mother Family Medical History: Cancer Additional Family Medical History / Comment(s): Mother had lung cancer, she never smoked but was around 2nd hand smoke. Son(s) Family Medical History: Hypertension General Exam Limitations: no limitations General appearance: alert, in no apparent distress Head exam: Present: atraumatic, normocephalic Eye exam: Present: normal appearance, PERRL, nystagmus (Subtle horizontal nystagmus) Neck exam: Present: normal inspection. Absent: tenderness, meningismus Respiratory exam: Present: normal lung sounds bilaterally. Absent: respiratory distress, wheezes Cardiovascular Exam: Present: regular rate, normal rhythm GI/Abdominal exam: Present: soft. Absent: distended, tenderness Extremities exam: Present: normal inspection, normal capillary refill Neurological exam: Present: alert, oriented X3, CN II-XII intact, other (NIH of 0). Absent: motor sensory deficit (5 out of 5 strength throughout) Skin exam: Present: warm, dry, intact Course Vital Signs 09/11/23 08:16 Temperature 98.4 F Pulse Rate 82 Respiratory 20 Rate Blood Pressure 165/92 O2 Sat by Pulse 96 Oximetry Medical Decision Making - Medical Decision Making Was pt. sent in by a medical professional or institution (, PA, HEAD CD REACTOR OPERATOR, urgent care, hospital, or long-term...) When possible be specific @ -No Did you speak to anyone other than the patient for history (EMS, parent, family, police, friend...)? What history was obtained from this source @ -No Did you review nursing and triage notes (agree or disagree)? Why? @ -I reviewed and agree with nursing and triage notes Were old charts reviewed (outside hosp., previous admission, EMS record, old EKG, old radiological studies, urgent care reports/EKG's, long-term records)? Report findings @ -No old charts were reviewed Differential Diagnosis (chest pain, altered mental status, abdominal pain women, abdominal pain men, vaginal bleeding, weakness, fever, dyspnea, syncope, headache, dizziness, GI bleed, back pain, seizure, CVA, palpatations, mental health, musculoskeletal)? @ -Differential CVA Ischemic stroke, hemorrhagic stroke, brain tumor, atypical migraine, Wernicke's encephalopathy, seizure, multiple sclerosis, meningitis, encephalitis, hypoglycemia, Guillain-Bales, electrolytes disturbance, myasthenia gravis.... This is not meant to be an all-inclusive list EKG interpreted by me (3pts min.). @Sinus rhythm rate of 79, CO interval 184, QRS duration 104, QTC [address] segment elevation. X-rays interpreted by me (1pt min.). @ -None done CT interpreted by me (1pt min.). @ -None done U/S interpreted by me (1pt. min.). @ -None done What testing was considered but not performed or refused? (CT, X-rays, U/S, labs)? Why? @ -None What meds were considered but not given or refused? Why? @ -None Did you discuss the management of the patient with other professionals (professionals i.e. , PA, HEAD CD REACTOR OPERATOR, lab, RT, psych nurse, social science instructor, industrial hygiene engineer, teacher, commercial account officer, ed case manager)? Give summary @ -Is discussed with Dr. Branden RN for stroke intervention, agrees with MRI at this time, no need for transfer. Discussed case with Dr. Melanie cook for neurology who will evaluate this patient at this institution. Recommends MRI, holding antiplatelet and anticoagulant until MRI results. Discussed case with Dr. Hobson who will admit. Was smoking cessation discussed for >3mins.? @ -No Was critical care preformed (if so, how long)? @ -[yes 35 min Were there social determinants of health that impacted care today? How? (Homelessness, low income, unemployed, alcoholism, drug addiction, transport ation, low edu. Level, literacy, decrease access to med. care, penitentiary, rehab)? @ -No Was there de-escalation of care discussed even if they declined (Discuss DNR or withdrawal of care, Hospice)? DNR status @ -No What co-morbidities impacted this encounter? (DM, HTN, Smoking, COPD, CAD, Cancer, CVA, ARF, Chemo, Hep., AIDS, mental health diagnosis, sleep apnea, morbid obesity)? @ -Hypertension, prior CVA Was patient admitted / discharged? Hospital course, mention meds given and route, prescriptions, significant lab abnormalities, going to OR and other pertinent info. @ 63-year-old male with dizziness upon wakening. Patient has an NIH is 0. He has a subtle horizontal nystagmus. Otherwise normal neurologic exam. He had previous CVA with similar symptoms. Therefore both CT and CT angiography was ordered to the emergency department. CT shows a left petechial hemorrhage in the cerebellum measuring approximately 5 mm with no mass effect or midline shift. He has a CT angiogram without acute occlusion or stenosis. His laboratory testing is unremarkable. He's in sinus rhythm. He will be admitted for MRI and further evaluation. Undiagnosed new problem with uncertain prognosis? @ -No Drug Therapy requiring intensive monitoring for toxicity (Heparin, Nitro, Insulin, Cardizem)? @ -No Were any procedures done? @ -No Diagnosis/symptom? @ -[CVA Acute, or Chronic, or Acute on Chronic? @ -Acute Uncomplicated (without systemic symptoms) or Complicated (systemic symptoms)? @ -[Complicated Side effects of treatment? @ -No Exacerbation, Progression, or Severe Exacerbation? @ -No Poses a threat to life or bodily function? How? (Chest pain, USA, CO, pneumonia, PE, COPD, DKA, ARF, appy, cholecystitis, CVA, Diverticulitis, Homicidal, Suicidal, threat to staff... and all critical care pts) @ -Yes, CVA - Lab Data Result diagrams: 09/11/23 08:34 09/11/23 08:34 Lab Results 09/11/23 09/11/23 09/11/23 Range/Units 08:34 08:34 08:34 WBC 8.0 (3.8-10.6) k/uL RBC 5.44 (4.30-5.90) m/uL Hgb 17.0 (13.0-17.5) gm/dL Hct 50.0 (39.0-53.0) % MCV 92.0 (80.0-100.0) fL MCH 31.3 (25.0-35.0) pg MCHC 34.0 (31.0-37.0) g/dL RDW 13.2 (11.5-15.5) % Plt Count 203 (150-450) k/uL MPV 8.8 Neutrophils % 81 % Lymphocytes % 13 % Monocytes % 4 % Eosinophils % 1 % Basophils % 0 % Neutrophils # 6.5 (1.3-7.7) k/uL Lymphocytes # 1.0 (1.0-4.8) k/uL Monocytes # 0.3 (0-1.0) k/uL Eosinophils # 0.1 (0-0.7) k/uL Basophils # 0.0 (0-0.2) k/uL PT 10.2 (10.0-12.5) sec INR 0.9 (<1.2) APTT 19.6 L (22.0-30.0) sec Sodium 140 (137-145) mmol/L Potassium 4.2 (3.5-5.1) mmol/L Chloride 106 (98-107) mmol/L Carbon Dioxide 22 (22-30) mmol/L Anion Gap 12 mmol/L BUN 19 (9-20) mg/dL Creatinine 0.87 (0.66-1.25) mg/dL Est GFR (CKD-EPI)AfAm >90 (>60 ml/min/1.73 sqM) Est GFR (CKD-EPI)NonAf >90 (>60 ml/min/1.73 sqM) Glucose 121 H (74-99) mg/dL Calcium 9.5 (8.4-10.2) mg/dL Magnesium 2.0 (1.6-2.3) mg/dL Total Bilirubin 0.5 (0.2-1.3) mg/dL AST 36 (17-59) U/L ALT 43 (4-49) U/L Alkaline Phosphatase 58 (38-126) U/L Troponin I (0.000-0.034) ng/mL Total Protein 7.4 (6.3-8.2) g/dL Albumin 4.6 (3.5-5.0) g/dL 09/11/23 Range/Units 08:34 WBC (3.8-10.6) k/uL RBC (4.30-5.90) m/uL Hgb (13.0-17.5) gm/dL Hct (39.0-53.0) % MCV (80.0-100.0) fL MCH (25.0-35.0) pg MCHC (31.0-37.0) g/dL RDW (11.5-15.5) % Plt Count (150-450) k/uL MPV Neutrophils % % Lymphocytes % % Monocytes % % Eosinophils % % Basophils % % Neutrophils # (1.3-7.7) k/uL Lymphocytes # (1.0-4.8) k/uL Monocytes # (0-1.0) k/uL Eosinophils # (0-0.7) k/uL Basophils # (0-0.2) k/uL PT (10.0-12.5) sec INR (<1.2) APTT (22.0-30.0) sec Sodium (137-145) mmol/L Potassium (3.5-5.1) mmol/L Chloride (98-107) mmol/L Carbon Dioxide (22-30) mmol/L Anion Gap mmol/L BUN (9-20) mg/dL Creatinine (0.66-1.25) mg/dL Est GFR (CKD-EPI)AfAm (>60 ml/min/1.73 sqM) Est GFR (CKD-EPI)NonAf (>60 ml/min/1.73 sqM) Glucose (74-99) mg/dL Calcium (8.4-10.2) mg/dL Magnesium (1.6-2.3) mg/dL Total Bilirubin (0.2-1.3) mg/dL AST (17-59) U/L ALT (4-49) U/L Alkaline Phosphatase (38-126) U/L Troponin I <0.012 (0.000-0.034) ng/mL Total Protein (6.3-8.2) g/dL Albumin (3.5-5.0) g/dL Critical Care Time Critical Care Time: Yes Total Critical Care Time: 35 Disposition Clinical Impression: Cerebrovascular accident Disposition: ADMITTED IP TO THIS [facility] Condition: Serious Is patient prescribed a controlled substance at d/c from ED?: No Referrals: Nonstaff,Physician [Primary Care Provider] - 1-2 days Time of Disposition: 10:12
[2023-09-11 08:51] LABS: Basophils % (A) 0 %; Eosinophils # (A) 0.1 k/uL (0-0.7); Eosinophils % (A) 1 %; Lymphocytes % (A) 13 %; MCH 31.3 pg (25.0-35.0); Mean Platelet Volume 8.8; Monocytes # (A) 0.3 k/uL (0-1.0); Monocytes % (A) 4 %; Neutrophils # (A) 6.5 k/uL (1.3-7.7); Neutrophils % (A) 81 %; Platelet Count 203 k/uL (150-450); RBC 5.44 m/uL (4.30-5.90); RDW 13.2 % (11.5-15.5)
--- NOTE | 2023-09-11 08:53 | XR ---
EXAMINATION TYPE: XR chest 2V DATE OF EXAM: 09/11/2023 8:49 AM COMPARISON: Chest radiographs from 04/29/2019 TECHNIQUE: XR chest 2V Frontal and lateral views of the chest. CLINICAL INDICATION:Male, 63 years old with history of Dizzy; FINDINGS: Lungs/Pleura: There is no evidence of pleural effusion, focal consolidation, or pneumothorax. Chronic senescent parenchyma change. Pulmonary vascularity: Unremarkable. Heart/mediastinum: Cardiomediastinal silhouette is unremarkable. Musculoskeletal: No acute osseous pathology. Degenerative changes of the thoracic spine. IMPRESSION: No acute cardiopulmonary disease/process.
[2023-09-11 09:04] LABS: ALT 43 U/L (4-49); AST 36 U/L (17-59); African American GFR (CKD) >90 (>60 ml/min/1.73 sqM); Albumin 4.6 g/dL (3.5-5.0); Alkaline Phosphatase 58 U/L (38-126); Anion Gap 12 mmol/L; Blood Urea Nitrogen 19 mg/dL (9-20); Calcium 9.5 mg/dL (8.4-10.2); Carbon Dioxide 22 mmol/L (22-30); Chloride 106 mmol/L (98-107); Glucose 121 mg/dL (74-99); Non-African American GFR(CKD) >90 (>60 ml/min/1.73 sqM); Potassium 4.2 mmol/L (3.5-5.1); Sodium 140 mmol/L (137-145); Total Bilirubin 0.5 mg/dL (0.2-1.3); Total Protein 7.4 g/dL (6.3-8.2)
[2023-09-11 09:21] LABS: INR 0.9 (<1.2); Prothrombin Time 10.2 sec (10.0-12.5)
--- NOTE | 2023-09-11 09:21 | CT ---
EXAMINATION TYPE: CT brain wo con DATE OF EXAM: 09/11/2023 COMPARISON: 04/29/2019 HISTORY: 63-year-old male dizziness, history of CVA TECHNIQUE: Examination was done in axial plane without intravenous contrast. Coronal and sagittal r econstructions performed. CT DLP: 1092 mGycm Automated exposure control for dose reduction was used. FINDINGS: There is a small 5 mm hyperdense focus left paramedian cerebellar hemisphere, axial image 24 and sagi ttal image 48. Atherosclerotic calcifications in the carotid siphons. Otherwise, there is no evidence of acute intracranial hemorrhage, acute ischemic changes, mass, mass- effect, or extra-axial fluid collection. There is no effacement of cerebral sulci or basal subarachn oid cisterns. There is no hydrocephalus. There is no midline shift. Dugan-white matter distinction is preserved. Slight leftward nasal septal deviation. Paranasal sinuses and mastoid air cells well pneumatized. Orb its and globes are intact. IMPRESSION: 1. A 5 mm hyperdense focus left cerebellar hemisphere. Not clearly seen on the patient's prior 2019 e xam though some artifact is present through this area. Correlate for a small petechial hemorrhage. Fo llow-up can be performed. 2. No midline shift or mass effect or acute intracranial abnormality seen.
--- NOTE | 2023-09-11 09:29 | CT ---
EXAMINATION TYPE: CT angio head neck DATE OF EXAM: 09/11/2023 COMPARISON: 04/29/2019 HISTORY: 63-year-old male with dizziness, prior CVA TECHNIQUE: Contiguous axial scanning of the head and neck performed with IV Contrast, patient injecte d with 75 mL of Isovue 370. Coronal/sagittal MIP reconstructions performed. 3-D reconstructions gener ated on a dedicated independent workstation. CT DLP: 1862.5 mGycm Automated exposure control for dose reduction was used. FINDINGS: NECK: Conventional arch vessel branching anatomy. Dominant left vertebral artery. Both vertebral arteries are otherwise patent throughout their course. The bilateral common and internal carotid arteries are patent without any significant narrowing. NASCET criteria was utilized. BRAIN: The V4 segment right vertebral artery becomes even more hypoplastic after the PICA take off. Otherwis e, both vertebral and basilar arteries are patent as is the remainder of the posterior circulation. There is anatomic variation with persistent origin right DIRECTOR OF EVENTS. The bilateral internal carotid arteries and remainder of the anterior circulation is patent. No aneur ysmal change is seen. Dural venous sinuses are patent. IMPRESSION: 1. NECK: DOMINANT LEFT VERTEBRAL ARTERY. OTHERWISE, WIDELY PATENT VERTEBRAL AND CAROTID ARTERIES OF T HE NECK. 2. BRAIN: DOMINANT LEFT VERTEBRAL ARTERY. ANATOMIC VARIATION WITH PERSISTENT ORIGIN RIGHT DIRECTOR OF EVENTS. NO LARGE VESSEL INTRACRANIAL ARTERIAL OCCLUSION, SIGNIFICANT STENOSIS, OR ANEURYSMAL CHANGE IS SEEN.
[2023-09-11 09:30] LABS: Partial Thromboplastin Time 19.6 sec (22.0-30.0)
[2023-09-11] MEDS ORDERED: ACETAMINOPHEN TAB 325 MG TAB PO PRN (10:06)
[2023-09-11] MEDS ORDERED: NALOXONE 0.4 MG/ML 1 ML VIAL IV PRN (10:06)
--- NOTE | 2023-09-11 13:40 | P.CNNES ---
History of Present Illness Consult date: 09/11/23 Requesting physician: Israel Rivera Reason for Consult: cva History of Present Illness: This is a 63-year-old gentleman with history of stroke with residual minimal left hemiparesis, borderline hypertension who presented emergency department because of dizziness. Patient stated that he woke up today around 5:30 in the morning and he felt dizzy and he felt was mostly with positional. He felt the room is spinning. His last normal state was about 10:15 the p.m. He denies any focal weakness, numbness, any difficulty getting her words out worse swallowing. He did feel nauseous one-time episode that this past Sunday which was brief then resolved. He denies any falls or any head trauma. Denies any ringing in the ears or any hearing loss. He denies of any visual disturbance. He felt that this presentation was similar to 4-1/2 years ago when he had the stroke. He stated that at that time he had a cerebellum stroke. He is on aspirin 325 daily. He feels better currently after receiving IV fluids. Patient denies being on anticoagulation. Denies of history of atrial fibrillation next Some other workup during his hospital visit consisted of: CBC with differential is unremarkable. PT is 10.2, INR is 0.9, PTT is 19.6. 6 glucose 121, calcium, magnesium, KOTA ALT and sodium are within normal limits. CT of the head is reported as 5 mm hyperdense focus left cerebellar hemisphere. Not clearly seen on the patient's prior 2019 exam though some artifact is present through this area. Correlate for small petechial hemorrhage. Follow-up can be performed. No midline shift or mass affect or acute intracranial abnormality seen. I personally reviewed the CT of the head and I felt the it's a small hyperintense lesion over the left cerebellum and again I'm not sure if it's actually a bleed or an artifact or calcification CT angiography of the neck is reported as dominant left vertebral artery. Otherwise, widely patent vertebral and carotid arteries of the neck. CT angiography of the brain is reported as dominant left vertebral artery. 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 No large vessel intracranial arterial occlusion, significant stenosis or aneurysmal changes se en. EKG is reported as sinus rhythm. Left axis deviation. Pattern consistent with pulmonary disease. Review of Systems Review of system: The 12 point system was reviewed and apparent positive and negative per HPI. Past Medical History Past Medical History: CVA/TIA, Hyperlipidemia Additional Past Medical History / Comment(s): skin ca 3yrs ago History of Any Multi-Drug Resistant Organisms: None Reported Past Surgical History: Appendectomy Additional Past Surgical History / Comment(s): skin ca removal 3 yrs ago Past Anesthesia/Blood Transfusion Reactions: No Reported Reaction Past Psychological History: No Psychological Hx Reported Smoking Status: Never smoker Past Alcohol Use History: Occasional Past Drug Use History: None Reported - Past Family History Father Family Medical History: Hypertension, Myocardial Infarction ([place]) Additional Family Medical History / Comment(s): Father of a massive [place] at the age of 63yrs. Mother Family Medical History: Cancer Additional Family Medical History / Comment(s): Mother had lung cancer, she nev er smoked but was around 2nd hand smoke. Son(s) Family Medical History: Hypertension Medications and Allergies Home Medications Medication Instructions Recorded Confirmed Type Multivitamins, Thera [Multivitamin 1 tab PO DAILY 04/29/19 09/11/23 History (formulary)] Aspirin 325 mg PO DAILY #30 tab 04/30/19 09/11/23 Rx Evolocumab [Repatha Sureclick] 140 mg SQ Q14D 09/11/23 09/11/23 History Rosuvastatin [Crestor] 10 mg PO DAILY 09/11/23 09/11/23 History Allergies Allergy/AdvReac Type Severity Reaction Status Date / Time No Known Allergies Allergy Verified 09/11/23 10:57 Physical Examination - Vital Signs Vital Signs: Vital Signs Temp Pulse Resp BP Pulse Ox 09/11/23 11:43 83 18 155/96 96 09/11/23 08:16 98.4 F 82 20 165/92 96 Intake and Output 09/10/23 09/11/23 09/11/23 22:59 06:59 14:59 Other: Weight 108.862 kg GENERAL: The patient is lying in bed and is not in acute distress. NEUROLOGICAL: Higher mental function: The patient is awake, alert, oriented to self, place and time. Patient is following commands. No aphasia and no neglect. Cranial nerves: The pupils are round, equal and reactive to light and accommodation. Visual sebastian are full to confrontation throughout. Extraocular movement is intact no nystagmus is noted. Facial sensation is normal to touch throughout. The facial strength is normal throughout. Hearing is normal bilaterally to hand rub. Tongue is midline and moved [id number] without any difficulty. No dysarthria is noted. Shoulder shrug is normal bilaterally. Motor: Gait is normal. The strength on the left side is ?subtle weakness on the left is about 5- to 5/5. Otherwise 5 over 5 throughout. Normal tone and bulk. Cerebellum: Normal finger to nose heel to cadena bilaterally. Sensation: Sensation is normal to touch throughout. Reflexes (right/left): 2+ throughout. Plantars are downgoing bilaterally. Results - Laboratory Findings CBC and BMP: 09/11/23 08:34 09/11/23 08:34 Abnormal Lab Findings: Abnormal Labs 09/11/23 09/11/23 08:34 08:34 APTT 19.6 L Glucose 121 H Assessment and Plan Assessment: This is a 63-year-old gentleman with history of left cerebellar stroke in 2019 who presents emergency department because of dizziness today. He felt his symptoms were similar to his stroke in 2019. Currently he feels back to baseline and no focal deficits. CT of the head showed hyperintense small lesion over the left cerebellar concerning for either an possible hemorrhage versus artifact. Acute vertigo. Rule out posterior circulation stroke versus peripheral vertigo. No focal deficit on examination. The questionable small hyperintense lesion over the cerebellum is possible artifact versus bleed versus calcification. History of left cerebellar stroke Borderline hypertension controlled with diet Dyslipidemia History of GERD Plan: Patient is usually on aspirin 325 daily and will hold off any antiplatelet until the MRI is back to see if the patient does actually have a bleed or not. Recommend systolic blood pressure to be less 140. MRI the brain is ordered without and I will change it to with and without. Patient is on pravastatin 80 mg daily at bedtime Currently the patient does not have any focal deficits and feels back to baseline. I ordered a meclizine 25 Cuauhtemoc 1 tablet 3 times a day when necessary We'll defer the rest of the medical management to primary Continue neuro checks Cardiac monitoring For DVT prophylaxis rec SCDs for now The plan is discussed with patient and ED physician. Thank you for the consultation. Time with Patient: Greater than 30
--- NOTE | 2023-09-11 15:26 | P.HPIM ---
History of Present Illness H&P Date: 09/11/23 History of Presenting Illness: Patient is a very pleasant 63-year-old male with a past medical history of CVA and hyperlipidemia. He presented to the emergency department with a chief complaint of dizziness/lightheadedness. Patient reports up until yesterday evening feeling at his baseline normal. He reports going to bed yesterday night and awakening this morning. Patient reports upon getting out of bed to use the restroom he felt very dizzy/lightheaded upon standing. Patient reports he was able to make his way to the bathroom by holding himself up against the wall but states his balance was completely off. Patient reports feeling the same way 4 years ago when he had his previous stroke. Patient otherwise denies having any complaints including headache, changes in vision or hearing, difficulties or changes in his speech or memory, facial numbness or noted facial droop, dysphagia, chest pain or palpitations, shortness of breath, or experiencing any focal numbness/tingling/weakness in his extremities. Patient reports because he felt the same way he felt with his previous stroke 4 years ago he took aspirin 325 mg and call for his [id number] to drive him to the hospital. Upon arrival to the emergency department, patient underwent full evaluation. Vital signs upon arrival revealed blood pressure 165/92, heart rate 82, respiratory rate 20, temp 98.4F, SpO2 of 96% on room air. CT brain completed revealing a 5 mm hyperdense focus in the left cerebellar hemisphere, unable to rule out small petechial hemorrhage otherwise negative for midline shift or mass effect. Labs completed and reviewed. CBC unremarkable. Coagulation profile showing slightly low PTT of 19.6 otherwise normal findings. BMP unremarkable. Glucose 121. Liver profile unremarkable. Troponin negative at less than 0.012. EKG completed showing normal sinus rhythm at 79 bpm with no noted T-wave or ST abnormalities showing no signs of acute ischemia upon personal review and interpretation. CTA head and neck also completed with radiology report stating dominant left vertebral artery otherwise wildly patent vertebral and carotid arteries of the neck and CTA brain showing dominant left vertebral artery anatomic variation with persistent origin right GROUP CONTRACT ANALYST, negative for large vessel intracranial arterial occlusion, significant stenosis, or aneurysmal changes. Patient was admitted under our services with consultation to neurology. Review of systems: Pertinent positives and negatives as discussed in HPI, a complete review of systems was performed and all other systems are negative. Physical exam: Vital signs reviewed and stable. General: Nontoxic, no distress and appears stated age. Derm: Skin warm and dry, normal coloration for ethnicity. Head: Atraumatic, normocephalic and symmetric. Eyes: EOMs intact, no lid lag, and anicteric sclera Mouth: no lip lesions, mucus membranes moist Cardiovascular: regular rate and rhythm with normal S1S2, no murmur, positive posterior tibial pulses bilaterally, and cap refill < 2 seconds. Lungs: Respirations even, regular, and unlabored on room air. Lungs CTA bilaterally, no rhonchi, no rales, no wheezing, and no accessory muscle usage. Abdominal: soft, nontender to palpation, no guarding, no appreciable organomegaly Ext: ROM intact. No gross muscle atrophy, no edema, no contractures Neuro: Speech clear, face symmetrical and CN II-XII grossly intact with no noted focal neuro deficits GCS 15.. Psych: Alert and oriented to person, place, time, and situation. Appropriate and pleasant affect. Assessment and Plan of Care: Dizziness/lightheadedness with gait disturbances, rule out CVA Abnormal CT, concerning for hyperdense focus in the left cerebellar hemisphere unable to rule out petechial hemorrhage Hyperlipidemia -Order placed for NIH stroke scale every 12 hours with neuro checks hourly 4, every 2 hours 12, and every 4 hours. -Consult to neurology, appreciate recommendations -MRI brain with and without contrast to be completed. -Patient to remain on continuous telemetry monitoring. -Hold off antiplatelet medications such as aspirin/Plavix pending further recommendations by neurologist due to CT findings and inability to rule out petechial hemorrhage. -Patient to continue pravastatin 80 mg nightly -Fall precautions and seizure precautions to be in place. -Order placed for hemoglobin A1c and lipid profile. Will follow-up with these results. -Order placed for repeat echocardiogram with bubble study Data and imaging reviewed: -Vital signs upon arrival revealed blood pressure 165/92, heart rate 82, respiratory rate 20, temp 98.4F, SpO2 of 96% on room air. -CT brain completed revealing a 5 mm hyperdense focus in the left cerebellar hemisphere, unable to rule out small petechial hemorrhage otherwise negative for midline shift or mass effect. -Labs completed and reviewed. CBC unremarkable. Coagulation profile showing slightly low PTT of 19.6 otherwise normal findings. BMP unremarkable. Glucose 121. Liver profile unremarkable. Troponin negative at less than 0.012. -EKG completed showing normal sinus rhythm at 79 bpm with no noted T-wave or ST abnormalities showing no signs of acute ischemia upon personal review and interpretation. -CTA head and neck also completed with radiology report stating dominant left vertebral artery otherwise wildly patent vertebral and carotid arteries of the neck and CTA brain showing dominant left vertebral artery anatomic variation with persistent origin right GROUP CONTRACT ANALYST, negative for large vessel intracranial arterial occlusion, significant stenosis, or aneurysmal changes. -Reviewed previous echocardiogram completed 04/30/19 showing no right to left shunting noted and a preserved EF of 55-60%. The patient is admitted with an anticipated greater than 2 midnight stay for evaluation of dizziness/lightheadedness with concerns of petechial hemorrhage. CODE STATUS: Full code DVT prophylaxis: SCDs pending MRI results and petechial hemorrhage to left hemisphere can be ruled out Anticipated discharge date: Clinical course to determine Anticipated discharge place: Home Patient was seen independently by Nurse Practitioner. This document was prepared using [employer] dictation software. Please allow for errors in crushing mill operator while rare they do occur. Jamari George NP rendered care for this patient independently, reviewed the findings and plan as documented in the note above. I did not physically speak with or examine the patient on this date. Past Medical History Past Medical History: CVA/TIA, Hyperlipidemia Additional Past Medical History / Comment(s): skin ca 3yrs ago History of Any Multi-Drug Resistant Organisms: None Reported Past Surgical History: Appendectomy Additional Past Surgical History / Comment(s): skin ca removal 3 yrs ago Past Anesthesia/Blood Transfusion Reactions: No Reported Reaction Past Psychological History: No Psychological Hx Reported Smoking Status: Never smoker Past Alcohol Use History: Occasional Past Drug Use History: None Reported - Past Family History Father Family Medical History: Hypertension, Myocardial Infarction ([place]) Additional Family Medical History / Comment(s): Father of a massive [place] at the age of 63yrs. Mother Family Medical History: Cancer Additional Family Medical History / Comment(s): Mother had lung cancer, she never smoked but was around 2nd hand smoke. Son(s) Family Medical History: Hypertension Medications and Allergies Home Medications Medication Instructions Recorded Confirmed Type Multivitamins, Thera [Multivitamin 1 tab PO DAILY 04/29/19 09/11/23 History (formulary)] Aspirin 325 mg PO DAILY #30 tab 04/30/19 09/11/23 Rx Evolocumab [Repatha Sureclick] 140 mg SQ Q14D 09/11/23 09/11/23 History Rosuvastatin [Crestor] 10 mg PO DAILY 09/11/23 09/11/23 History Allergies Allergy/AdvReac Type Severity Reaction Status Date / Time No Known Allergies Allergy Verified 09/11/23 10:57 Physical Exam Osteopathic Statement: *. No significant issues noted on an osteopathic structural exam other than those noted in the History and Physical/Consult. Vitals: Vital Signs Temp Pulse Resp BP Pulse Ox 09/11/23 08:16 98.4 F 82 20 165/92 96 Intake and Output 09/10/23 09/11/23 09/11/23 22:59 06:59 14:59 Other: Weight 108.862 kg Results CBC & Chem 7: 09/11/23 08:34 09/11/23 08:34 Labs: Abnormal Lab Results - Last 24 Hours (Table) 09/11/23 09/11/23 Range/Units 08:34 08:34 APTT 19.6 L (22.0-30.0) sec Glucose 121 H (74-99) mg/dL
[2023-09-11] MEDS: amLODIPine 5 MG TAB PO SCH (19:00)
[2023-09-11] MEDS ORDERED: PRAVASTATIN SODIUM 80 MG TAB PO SCH (21:00)
[2023-09-11] MEDS ORDERED: hydrALAZINE HCL 25 MG TAB PO STA (23:05)
[2023-09-12] MEDS ORDERED: hydrALAZINE HCL 25 MG TAB PO STA (03:51)
[2023-09-12] MEDS: amLODIPine 5 MG TAB PO SCH (08:04)
[2023-09-12 12:20] VITALS: RESP 18; TEMP 97.8
--- NOTE | 2023-09-12 13:27 | CA ---
Transthoracic Echo Report Name: Eliezer Castro Age: 63 Gender: M : 1960 Exam Date: 09/12/2023 11:29 Exam Location: [place] [facility] Ht (in): 69 Wt (lb): 240 Ordering Physician: Jamari George Attending/Referring Phys: Line Producer Kike Can Procedure CPT: Indications: concerns of CVA. Cardiac Hx: Technical Quality: Technically difficult study Contrast 1: Total Dose (mL): Contrast 2: Total Dose (mL): MEASUREMENTS (Male / Female) Normal Values 2D ECHO LV Diastolic Diameter PLAX 4.4 cm 4.2 - 5.9 / 3.9 - 5.3 cm LV Systolic Diameter PLAX 2.7 cm IVS Diastolic Thickness 1.5 cm 0.6 - 1.0 / 0.6 - 0.9 cm LVPW Diastolic Thickness 1.4 cm 0.6 - 1.0 / 0.6 - 0.9 cm LV Relative Wall Thickness 0.6 RV Internal Dim ED PLAX 2.6 cm LVOT Diameter 2.3 cm Aortic Root Diameter 3.7 cm LA Systolic Diameter LX 2.1 cm 3.0 - 4.0 / 2.7 - 3.8 cm LV Diastolic Volume MOD BP 38.3 cm??? 67 - 155 / 56 - 104 cm??? LV Systolic Volume MOD BP 17.4 cm??? 22 - 58 / 19 - 49 cm??? LV Ejection Fraction MOD BP 54.5 % >= 55 % LV Cardiac Index MOD BP 783.3 cm???/min???m??? LV Diastolic Volume MOD 4C 47.0 cm??? LV Systolic Volume MOD 4C 18.6 cm??? LV Ejection Fraction MOD 4C 60.5 % LV Cardiac Index MOD 4C 1069.0 cm???/min???m??? LV Diastolic Length 4C 7.1 cm LV Systolic Length 4C 6.8 cm LV Diastolic Volume MOD 2C 30.2 cm??? LV Systolic Volume MOD 2C 16.0 cm??? LV Ejection Fraction MOD 2C 46.9 % LV Cardiac Index MOD 2C 532.2 cm???/min???m??? LV Diastolic Length 2C 6.9 cm LV Systolic Length 2C 6.6 cm LA Volume 40.7 cm??? 18 - 58 / 22 - 52 cm??? LA Volume Index 17.4 cm???/m??? 16 - 28 cm???/m??? Ascending Aorta Diameter 3.8 cm DOPPLER AV Peak Velocity 148.1 cm/s AV Peak Gradient 8.8 mmHg LVOT Peak Velocity 92.2 cm/s LVOT Peak Gradient 3.4 mmHg LVOT Velocity Time Integral 16.5 cm LVOT Stroke Volume 69.3 cm??? LVOT Stroke Volume Index 31.1 ml/m??? LVOT Cardiac Index 2603.8 cm???/min???m??? AV Area Cont Eq pk 2.6 cm??? MV Peak Velocity 98.0 cm/s MV Peak Gradient 3.8 mmHg MV Mean Velocity 49.2 cm/s MV Mean Gradient 1.2 mmHg MV Velocity Time Integral 22.3 cm Mitral E Point Velocity 53.6 cm/s Mitral A Point Velocity 76.3 cm/s Mitral E to A Ratio 0.7 MV Deceleration Time 234.9 ms MV E' Velocity 6.5 cm/s Mitral E to MV E' Ratio 8.2 TR Peak Velocity 245.4 cm/s TR Peak Gradient 24.1 mmHg Right Ventricular Systolic Press 29.1 mmHg PV Peak Velocity 99.0 cm/s PV Peak Gradient 3.9 mmHg FINDINGS Left Ventricle Normal LV size. Moderate concentric LVH.left ventricular ejection fraction is estimated at 55-60 %.normal left ventricular wall motion. Right Ventricle Normal right ventricular size. Right Atrium Normal right atrial size. Left Atrium Normal left atrial size. Negative agitated saline study. Mitral Valve Structurally normal mitral valve. No mitral regurgitation. Aortic Valve Trileaflet aortic valve. No aortic valve stenosis or regurgitation. Tricuspid Valve Tricuspid valve not well visualized. Trace TR. Pulmonic Valve Structurally normal pulmonic valve. No pulmonic regurgitation. Pericardium Not well visualized. Aorta Normal size aortic root. Ascending AO mishel= 3.8cm. CONCLUSIONS Negative bubble study. No evidence of shunting by contrast bubble study Normal left ventricle size and systolic function Limited Doppler study with no gross abnormalities Previewed by: Dr. Gallo Velez MD (Electronically Signed) Final Date: 12 September 2023 13:26
[2023-09-12 13:54] LABS: Chol/HDL Ratio 1.88 Ratio; LDL Cholesterol,Calculated 20.5 mg/dL (0.0-131.0); VLDL Calculation 19.16 mg/dL (5.00-40.00)
--- NOTE | 2023-09-12 15:40 | P.PN ---
Subjective Progress Note Date: 09/12/23 History of Presenting Illness: Patient is a very pleasant 63-year-old male with a past medical history of CVA and hyperlipidemia. He presented to the emergency department with a chief complaint of dizziness/lightheadedness. Patient reports up until yesterday evening feeling at his baseline normal. He reports going to bed yesterday night and awakening this morning. Patient reports upon getting out of bed to use the restroom he felt very dizzy/lightheaded upon standing. Patient reports he was able to make his way to the bathroom by holding himself up against the wall but states his balance was completely off. Patient reports feeling the same way 4 years ago when he had his previous stroke. Patient otherwise denies having any complaints including headache, changes in vision or hearing, difficulties or changes in his speech or memory, facial numbness or noted facial droop, dysphagia, chest pain or palpitations, shortness of breath, or experiencing any focal numbness/tingling/weakness in his extremities. Patient reports because he felt the same way he felt with his previous stroke 4 years ago he took aspirin 325 mg and call for his [id number] to drive him to the hospital. Upon arrival to the emergency department, patient underwent full evaluation. Vital s igns upon arrival revealed blood pressure 165/92, heart rate 82, respiratory rate 20, temp 98.4F, SpO2 of 96% on room air. CT brain completed revealing a 5 mm hyperdense focus in the left cerebellar hemisphere, unable to rule out small petechial hemorrhage otherwise negative for midline shift or mass effect. Labs completed and reviewed. CBC unremarkable. Coagulation profile showing slightly low PTT of 19.6 otherwise normal findings. BMP unremarkable. Glucose 121. Liver profile unremarkable. Troponin negative at less than 0.012. EKG completed showing normal sinus rhythm at 79 bpm with no noted T-wave or ST abnormalities showing no signs of acute ischemia upon personal review and int erpretation. CTA head and neck also completed with radiology report stating dominant left vertebral artery otherwise wildly patent vertebral and carotid arteries of the neck and CTA brain showing dominant left vertebral artery anatomic variation with persistent origin right VOCATIONAL SERVICES SPECIALIST, negative for large vessel intracranial arterial occlusion, significant stenosis, or aneurysmal changes. Patient was admitted under our services with consultation to neurology. Physical exam: Patient seen and fully evaluated at bedside this morning. Patient appears to be doing well this morning. Currently he denies having any further episodes of dizziness/lightheadedness or gait disturbances. Vital signs reviewed and stable. General: Nontoxic, no distress and appears stated age. Derm: Skin warm and dry, normal coloration for ethnicity. Head: Atraumatic, normocephalic and symmetric. Eyes: EOMs intact, no lid lag, and anicteric sclera Mouth: no lip lesions, mucus membranes moist Cardiovascular: regular rate and rhythm with normal S1S2, no murmur, positive posterior tibial pulses bilaterally, and cap refill < 2 seconds. Lungs: Respirations even, regular, and unlabored on room air. Lungs CTA bilaterally, no rhonchi, no rales, no wheezing, and no accessory muscle usage. Abdominal: soft, nontender to palpation, no guarding, no appreciable organomegaly Ext: ROM intact. No gross muscle atrophy, no edema, no contractures Neuro: Speech clear, face symmetrical and CN II-XII grossly intact with no noted focal neuro deficits GCS 15.. Psych: Alert and oriented to person, place, time, and situation. Appropriate and pleasant affect. Assessment and Plan of Care: Dizziness/lightheadedness with gait disturbances, rule out CVA Abnormal CT, concerning for hyperdense focus in the left cerebellar hemisphere unable to rule out petechial hemorrhage Hyperlipidemia -Order placed for NIH stroke scale every 12 hours with neuro checks hourly 4, every 2 hours 12, and every 4 hours. -Consult to neurology, appreciate recommendations -MRI brain with and without contrast to be completed. -Patient to remain on continuous telemetry monitoring. -Hold off antiplatelet medications such as aspirin/Plavix pending further recommendations by neurologist due to CT findings and inability to rule out p etechial hemorrhage. -Patient to continue pravastatin 80 mg nightly -Fall precautions and seizure precautions to be in place. -Lipid profile was unremarkable. Hemoglobin A1c was 5.7%. -Awaiting completion of repeat echocardiogram with bubble study Hypertension Patient has been running mildly hypertensive blood pressures with systolic pressures ranging 140s to 160s. Discussed this in great detail with neurologist, because if patient is having an ischemic stroke we would want to allow for per missive hypertension, however due to inability to fully rule out petechial hemorrhage until MRI is completed neurologist recommending keeping blood pressures below 150 and patient has been started on amlodipine 5 mg daily. Since starting on amlodipine blood pressures have ranged from 130/94-146/95. Data and imaging reviewed: Vital signs reviewed. Blood pressure 133/90, heart rate 79, respiratory rate 16, temp 97.7F, SpO2 of 94% on room air. Lipid profile unremarkable. Hemoglobin A1c 5.7%. CODE STATUS: Full code DVT prophylaxis: SCDs pending MRI results and petechial hemorrhage to left hemisphere can be ruled out Anticipated discharge date: Clinical course to determine Anticipated discharge place: Home Patient was seen independently by Nurse Practitioner. This document was prepared using [employer] dictation software. Please allow for errors in personal health coach while rare they do occur. Objective - Vital Signs Vital signs: Vital Signs Temp 97.7 F 09/12/23 07:50 Pulse 79 09/12/23 07:50 Resp 16 09/12/23 07:50 BP 133/90 09/12/23 07:50 Pulse Ox 94 L 09/12/23 07:50 FiO2 Intake & Output 09/11/23 09/12/23 09/12/23 18:59 06:59 18:59 Intake Total 10 Output Total 850 Balance -850 10 Weight 108.862 kg 108.862 kg Intake: IV 10 Invasive Line 1 10 Output: Urine 850 Other: Voiding Method Toilet # Voids 1 - Labs CBC & Chem 7: 09/11/23 08:34 09/11/23 08:34 Labs: Abnormal Lab Results - Last 24 Hours (Table) 09/11/23 09/11/23 Range/Units 08:34 08:34 APTT 19.6 L (22.0-30.0) sec Glucose 121 H (74-99) mg/dL
--- NOTE | 2023-09-12 15:49 | MR ---
EXAMINATION TYPE: MR brain wo/w con DATE OF EXAM: 09/12/2023 1:32 PM CLINICAL INDICATION:Male, 63 years old with history of dizziness. ?left cerebellum hyperintense on C T.; PHH, Dizziness, Left cerebellum hyperintense on CT COMPARISON: 09/11/2023 TECHNIQUE: Multi planar, multi sequence imaging was performed through the brain including: T1, T2, In version recovery, susceptibility weighted imaging and gradient echo imaging and Diffusion weighted im aging. The patient was then given intravenous contrast and multi planar, T1 fat-saturation images wer e obtained. IV Contrast: 11 cc Gadavist FINDINGS: Left cerebellar hemisphere a low T2/low T1 signal focus which demonstrates post demonstrates a single focus of enhancement 1 mm with blooming artifact on susceptibility weighted imaging. Area not defini tively seen on 04/30/2019. No additional areas of abnormal enhancement. The almodovar-white junctions, ventricular system, basal cisterns appear unremarkable. Diffusion-weighted imaging shows no evidence of restricted diffusion to suggest acute/subacute infarct. Intracranial ar terial flow voids are maintained. Midline structures show no abnormality. Scattered foci of high T2 s ignal intensity are seen within the periventricular white matter. The susceptibility weighted images do not reveal any evidence for micro-hemorrhage. The bone marrow signal is within normal limits. Paranasal sinuses and mastoid air cells: No significant paranasal sinus disease. Visualized orbits: Orbital contents are intact. IMPRESSION: 1. Focus within the left cerebellum demonstrate susceptibility artifact suspicious for cavernoma vers us hemosiderin deposition from microhemorrhage. This is not definitely seen on 2019 study. Correlate with history of malignancy and correlation with any recent priors at outside institutions may be of b enefit. Short-term follow-up MRI brain with IV contrast recommended. 2. No additional evidence of intracranial mass, acute/subacute infarct, or abnormal enhancement. 3. Nonspecific white matter changes, likely related to small vessel ischemic disease.
[2023-09-12 16:27] VITALS: BP 124/87; PULSE 82
--- NOTE | 2023-09-12 17:29 | P.PN ---
Subjective Progress Note Date: 09/12/23 I'll follow up with the patient and he states that he continues to be at baseline. Denies of any new neurological deficit. Denies of any dizziness any nausea any vomiting. Objective - Vital Signs Vital signs: Vital Signs Temp 97.8 F 09/12/23 11:59 Pulse 82 09/12/23 16:09 Resp 18 09/12/23 16:09 BP 124/87 09/12/23 16:09 Pulse Ox 96 09/12/23 16:09 FiO2 Intake & Output 09/11/23 09/12/23 09/12/23 18:59 06:59 18:59 Intake Total 1030 Output Total 850 Balance -850 1030 Weight 108.862 kg 108.862 kg Intake: IV 10 Invasive Line 1 10 Oral 1020 Output: Urine 850 Other: Voiding Method Toilet Toilet # Voids 1 3 - Exam GENERAL: The patient is lying in bed and is not in acute distress. NEUROLOGICAL: Higher mental function: The patient is awake, alert, oriented to self, place and time. Patient is following commands. No aphasia and no neglect. Cranial nerves: The pupils are round, equal and reactive to light and accommodation. Visual sebastian are full to confrontation throughout. Extraocular movement is intact no nystagmus is noted. Facial sensation is normal to touch throughout. The facial strength is normal throughout. Hearing is normal bilaterally to hand rub. Tongue is midline and moved [id number] without any difficulty. No dysarthria is noted. Shoulder shrug is normal bilaterally. Motor: Gait is normal. The strength on the left side is ?subtle weakness on the left is about 5- to 5/5. Otherwise 5 over 5 throughout. Normal tone and bulk. Cerebellum: Normal finger to nose heel to cadena bilaterally. Sensation: Sensation is normal to touch throughout. Reflexes (right/left): 2+ throughout. Plantars are downgoing bilaterally. Some other workup during his hospital visit consisted of: CBC with differential is unremarkable. PT is 10.2, INR is 0.9, PTT is 19.6. calcium, magnesium, KOTA ALT and sodium are within normal limits. Hemoglobin A1c is 5.7 Lipid panel is a triglyceride 95, cholesterol is 85, LDLs 20 and HDL is 45. CT of the head is reported as 5 mm hyperdense focus left cerebellar hemisphere. Not clearly seen on the patient's prior 2019 exam though some artifact is present through this area. Correlate for small petechial hemorrhage. Follow-up can be performed. No midline shift or mass affect or acute intracranial abnormality seen. I personally reviewed the CT of the head and I felt the it's a small hyperintense lesion over the left cerebellum and again I'm not sure if it's actually a bleed or an artifact or calcification CT angiography of the neck is reported as dominant left vertebral artery. Otherwise, widely patent vertebral and carotid arteries of the neck. CT angiography of the brain is reported as dominant left vertebral artery. Anatomic variation with persistent origin right MACHINE BUFFER. No large vessel intracranial arterial occlusion, significant stenosis or aneurysmal changes seen. EKG is reported as sinus rhythm. Left axis deviation. Pattern consistent with pulmonary disease. 2D echo: Negative bubble study. No evidence of shunting by contrast bubble study. Normal left ventricle size and systolic function. Limited Doppler study with no gross abnormality. MR the brain is reported as focus within the left cerebellum demonstrates susceptibility artifact suspicious for cavernoma versus hemosiderin deposition from microhemorrhage. This is not definitely seen on 2019 study. Correlate wit h history of malignancy and correlation with any recent prior at outside institution imaging may be of benefit. Short-term follow-up MRI brain with IV contrast recommended. No additional evidence of intracranial mass, acute/subacute infarct or abnormal enhancement. Nonspecific white matter change s, likely related to small vessel ischemic disease. - Labs CBC & Chem 7: 09/11/23 08:34 09/11/23 08:34 Assessment and Plan Assessment: This is a 63-year-old gentleman with history of left cerebellar stroke in 2019 who presents emergency department because of dizziness today. He felt his symptoms were similar to his stroke in 2019. Currently he feels back to baseline and no focal deficits. CT of the head showed hyperintense small lesion over the left cerebellar concerning for either an possible hemorrhage versus artifact. Acute transient vertigo. On MRI Brain there is no acute/subacute ischemia or any enhancement. Patient has focus on left cerebellum possible cavernoma vs hemosiderin from microhemorrhage not seen on prior MRI in 2019. History of left cerebellar stroke Borderline hypertension controlled with diet Dyslipidemia History of GERD Plan: Patient is usually on aspirin 325 daily and will hold off any antiplatelet for now to avoid any hemorrhagic bleed. I'll have the patient follow up with a neurologist as an outpatient and neurosurgeon and I'll left them my decides on decision of for pursuing antiplatelet. Patient was notified to be off at least 1-2 weeks. Aspirin is resumed I would recommend a low dose aspirin since there is no benefit of high-dose compared to low dose. Treatment surveillance MRI the brain as an outpatient. Patient is on pravastatin 80 mg daily at bedtime Currently the patient does not have any focal deficits and feels back to baseline. We'll defer the rest of the medical management to primary Continue neuro checks Cardiac monitoring For DVT prophylaxis rec SCDs for now Patient will follow up with a neurologist and neurosurgeon as an outpatient and recommend seeing them within 1-2 weeks. Otherwise, no additional neurological work-up. The plan discussed with the patient, his is at bedside and that his nurse Time with Patient: Less than 30
--- NOTE | 2023-09-12 18:24 | P.DS ---
Providers Date of admission: 09/11/23 10:06 Attending physician: Andria Hobson DO Consults: 09/11/23 10:06 Consult Physician Routine Consulting Provider: Sanya Navarro Consult Reason/Comments: CVA Do you want consulting provider notified?: Already Contacted Primary care physician: Physician Nonstaff Hospital Course: Discharge Diagnosis: Acute transient vertigo with Dizziness/lightheadedness and gait disturbances. Symptoms resolved. However CT and MRI findings were abnormal and concerning for concerning for hyperdense focus in the left cerebellar hemisphere suspicious for cavernoma versus hemosiderin deposition from microhemorrhage. Patient instructed to Avoid aspirin and NSAIDs for at least one week until follow up with Neurologist Dr. Lopez at [facility] and further instructions are provided.. Patient also instructed to Return to the hospital immediately if symptoms returns or he experiences any headache, lightheadedness, dizziness/lightheadedness, difficulties with or changes in speech, difficulties with or changes in gait/balance, or if he experiences any numbness/tingling/weakness in his extremities. Hypertension, patient discharged home on amlodipine 5 mg daily. Hyperlipidemia Hospital Course: Patient is a very pleasant 63-year-old male with a past medical history of CVA and hyperlipidemia. He presented to the emergency department with a chief complaint of dizziness/lightheadedness. Patient reports up until yesterday evening feeling at his baseline normal. He reports going to bed yesterday night and awakening this morning. Patient reports upon getting out of bed to use the restroom he felt very dizzy/lightheaded upon standing. Patient reports he was able to make his way to the bathroom by holding himself up against the wall but states his balance was completely off. Patient reports feeling the same way 4 years ago when he had his previous stroke. Patient otherwise denies having any complaints including headache, changes in vision or hearing, difficulties or changes in his speech or memory, facial numbness or noted facial droop, dysphagia, chest pain or palpitations, shortness of breath, or experiencing any focal numbness/tingling/weakness in his extremities. Patient reports because he felt the same way he felt with his previous stroke 4 years ago he took aspirin 325 mg and call for his [id number] to drive him to the hospital. Upon arrival to the emergency department, patient underwent full evaluation. Vital signs upon arrival revealed blood pressure 165/92, heart rate 82, respiratory rate 20, temp 98.4F, SpO2 of 96% on room air. CT brain completed revealing a 5 mm hyperdense focus in the left cerebellar hemisphere, unable to rule out small petechial hemorrhage otherwise negative for midline shift or mass effect. Labs completed and reviewed. CBC unremarkable. Coagulation profile showing slightly low PTT of 19.6 otherwise normal findings. BMP unremarkable. Glucose 121. Liver profile unremarkable. Troponin negative at less than 0.012. EKG completed showing normal sinus rhythm at 79 bpm with no noted T-wave or ST abnormalities showing no signs of acute ischemia upon personal review and interpretation. CTA head and neck also completed with radiology report stating dominant left vertebral artery otherwise wildly patent vertebral and carotid arteries of the neck and CTA brain showing dominant left vertebral artery anatomic variation with persistent origin right DETACHER, negative for large vessel intracranial arterial occlusion, significant stenosis, or aneurysmal changes. Patient was admitted under our services with consultation to neurology. Patient had full resolution of symptoms of dizziness/lightheadedness and is now ambulatory with a steady gait. Echocardiogram was completed showing normal preserved EF of 55-60%, negative bubble study showing no evidence of shunting by contrast and no reported significant structural or valvular abnormalities. Patient had been running mildly hypertensive blood pressures with systolic pressures ranging 140s to 160s. Discussed this in great detail with neurologist, because if patient is having an ischemic stroke we would want to allow for permissive hypertension, however due to inability to fully rule out petechial hemorrhage until MRI is completed neurologist recommending keeping blood pressures below 150 and patient has been started on amlodipine 5 mg daily. Since starting on amlodipine blood pressures have ranged from 130/94-146/95. MRI also completed showing focus within the left cerebellum demonstrated susceptibility artifacts suspicious for cavernoma versus hemosiderin deposition from microhemorrhage. Radiologist recommending short-term follow-up MRI with IV contrast. Neurology evaluated and placed call to colleague Dr. Lopez whom is a Neurologist with [facility] and agreed to get patient into their office next week. Pt cleared from neurology perspective. All symptoms remain resolved. Patient is medically stable for discharge at this time. He was instructed to Avoid aspirin and NSAIDs for at least one week until follow up with Neurologist Dr. Lopez at [facility] and further instructions are provided.. Patient also instructed to Return to the hospital immediately if he experiences any headache, lightheadedness, dizziness/lightheadedness, difficulties with or changes in speech, difficulties with or changes in gait/balance, or if he experiences any numbness/tingling/weakness in his extremities. Physical exam: Vital signs reviewed and stable. General: Nontoxic, no distress and appears stated age. Derm: Skin warm and dry, normal coloration for ethnicity. Head: Atraumatic, normocephalic and symmetric. Eyes: EOMs intact, no lid lag, and anicteric sclera Mouth: no lip lesions, mucus membranes moist Cardiovascular: regular rate and rhythm with normal S1S2, no murmur, positive posterior tibial pulses bilaterally, and cap refill < 2 seconds. Lungs: Respirations even, regular, and unlabored on room air. Lungs CTA bilaterally, no rhonchi, no rales, no wheezing, and no accessory muscle usage. Abdominal: soft, nontender to palpation, no guarding, no appreciable organomegaly Ext: ROM intact. No gross muscle atrophy, no edema, no contractures Neuro: Speech clear, face symmetrical and CN II-XII grossly intact with no noted focal neuro deficits GCS 15.. Psych: Alert and oriented to person, place, time, and situation. Appropriate and pleasant affect. A total of 38 minutes of time were spent preparing this complex discharge summary. Pt was discharged on 09/12/23 at 6:10 PM. Patient was seen independently by Nurse Practitioner. This document was prepared using [employer] dictation software. Please allow for errors in supervisor steel division while rare they do occur. Patient Condition at Discharge: Stable Plan - Discharge Summary Discharge Rx Participant: Yes New Discharge Prescriptions: New amLODIPine [Norvasc] 5 mg PO DAILY 90 Days #90 tab Continue Multivitamins, Thera [Multivitamin (formulary)] 1 tab PO DAILY Aspirin 325 mg PO DAILY #30 tab Evolocumab [Repatha Sureclick] 140 mg SQ Q14D Rosuvastatin [Crestor] 10 mg PO DAILY Discharge Medication List Multivitamins, Thera [Multivitamin (formulary)] 1 tab PO DAILY 04/29/19 [History] Aspirin 325 mg PO DAILY #30 tab 04/30/19 [Rx] Evolocumab [Repatha Sureclick] 140 mg SQ Q14D 09/11/23 [History] Rosuvastatin [Crestor] 10 mg PO DAILY 09/11/23 [History] amLODIPine [Norvasc] 5 mg PO DAILY 90 Days #90 tab 09/12/23 [Rx] Follow up Appointment(s)/Referral(s): Barrett Lopez MD [REFERRING] - 1 Week (Follow up in Dr. Lopez's office in one week. Please call office in the morning to schedule.) Activity/Diet/Wound Care/Special Instructions: Activity: As tolerated. Avoid excessive exertion 1 week. Diet: Heart healthy and carb consistent diet. Avoid salts, or foods with hidden salts such as canned or boxed foods and frozen dinners. Extra salt makes your heart work harder and traps the fluid in your body for longer. Special Instructions: Take all of your medications as directed and remember to keep all of your doctor's appointments and follow-up as needed. Avoid aspirin and NSAIDs for at least one week until follow up with Neurologist Dr. Lopez at [facility] and further instructions are provided.. Return to the hospital immediately if you experience any headache, lightheadedness, dizziness/lightheadedness, difficulties with or changes in your speech, difficulties with or changes in your gait/balance, or if you experience any numbness/tingling/weakness in your extremities. Thank you for allowing us to participate in your care, it was truly a pleasure having you for our patient!!! Discharge Disposition: HOME SELF-CARE
== END 2023-09-12 19:33 | disposition home or self-care (01) ==
LOC: EC 08:13 → INTOOBSV 10:06 → 3SCARD 10:06 → UNDODISIN 09-12 19:33
PROVIDERS: ADMIT Internal Medicine; ATTEND Internal Medicine
DX: R42 Dizziness and giddiness (principal); I69.354 Hemiplegia and hemiparesis following cerebral infarction affecting left non-dominant side; R26.9 Unspecified abnormalities of gait and mobility; R90.89 Other abnormal findings on diagnostic imaging of central nervous system; I10 Essential (primary) hypertension; E78.5 Hyperlipidemia, unspecified; K21.9 Gastro-esophageal reflux disease without esophagitis; Z85.828 Personal history of other malignant neoplasm of skin; Z79.51 Long term (current) use of inhaled steroids; Z79.899 Other long term (current) drug therapy
CPT/HCPCS: 96360; 99291; 36415; 93005; 93306; 80061; 80053; 83735; 84484; 85025; 85610; 85730; 83036; 71046; 70496; 70450; 70498; 70553; G0378 ×2; Q9967; A9585